=== PATIENT | female | born 1995 | race Caucasian/White ===

== ENCOUNTER 2022-09-03 06:07 | Inpatient (IN) | payer SELFPAY ==
[2022-09-03] VITALS (49 sets, daily range): BP systolic 119–159; BP diastolic 58–95; PULSE 70–140; TEMP 97.8–99.5
[~2022-09-03] VITALS: Ht 154.9 cm; Wt 69.1 kg
--- NOTE | 2022-09-03 06:30 | NUR ---
0630: PT AMBULATORY TO LR5 WITH SPOUSE. CHANGED INTO CLEAN GOWN. VIDEO POPCORN CANDY MAKER USED FOR COMMUNICATION. FHR MONITOR/TOCO APPLIED. PT DENIES ANY VAGINAL BLEEDING, LEAKING OF FLUID, REGULAR CONTRACTIONS, OR DECREASED MOVEMENT. INDUCTION OF LABOR AND POC DISCUSSED, PT VERBALIZES UNDERSTANDING.
[2022-09-03] MEDS ORDERED: PRENATAL TABLET (06:52)
[2022-09-03 08:07] LABS: BASO % 0.3 % (0.0-2.0); EOS # 0.1 K/mm3 (0.0-0.7); EOS % 1.2 % (0.0-4.0); GRAN # 5.7 K/mm3 (1.4-6.5); GRAN % 65.7 % (42.2-75.2); HEMOGLOBIN 11.2 g/dl (12.5-16.0); LYMPH # 2.2 K/mm3 (1.2-3.4); MEAN CELL VOLUME 87 fl (80.0-100.0); MEAN CORPUSCULAR HEMOGLOBIN 30 pg (27-31); MEAN CORPUSCULAR HGB CONC 35 g/dl (33.0-37.0); MEAN PLATELET VOLUME 10.3 fl (7.4-10.4); MONO # 0.6 K/mm3 (0.1-0.6); MONO % 6.5 % (1.7-9.3); PLATELET COUNT 247 K/mm3 (130-400); REDCELL DISTRIBUTION WIDTH-CV 13.3 % (11.5-14.5)
[2022-09-03 08:10] LABS: HEMATOCRIT 32.1 % (37.0-47.0)
--- NOTE | 2022-09-03 12:00 | NUR ---
[id number] PT AMBULATING IN ROOM. FHR MONITOR HAVING DIFFICULTY TRACING DUE TO MATERNAL POSITION.
--- NOTE | 2022-09-03 17:00 | NUR ---
DR HARPER ON UNIT REVIEWING FHR STRIP. ORDERS TO GO UP TO 30 ON PITOCIN.
--- NOTE | 2022-09-03 18:10 | NUR ---
This nurse received report from Sally Jarrett RN. Pt is a prime IOL, AROM at 0930 with clear fluid, epidural at 1310, [place] at 1410, 1640 SVE 6-0, is Colombian speaking, currently on 20 of Pitocin at 1705, and is a late PNC at 23 weeks. This nurse assumes care from Sally Jarrett RN.
--- NOTE | 2022-09-03 18:45 | NUR ---
This nurse at pt bedside for introductions and POC discussion. This nurse utilized unit cash poster Hailey ID #[id number]. This nurse discussed POC, pushing positions, and breathing. Questions, concerns, and needs encouraged. Pt verbalized understanding and agreement of POC with "no" questions, concerns, or needs.
--- NOTE | 2022-09-03 19:00 | NUR ---
FHR and ctx tracing intermittently due to pt positioning. Pt maneuvered into SLHR on BR, WL. This nurse at pt bedside palpating pt abd, with pt consent and explanation, attempting to readjust external monitors x2.
--- NOTE | 2022-09-03 19:15 | NUR ---
FHR and ctx tracing intermittently due to pt positioning. This nurse at pt bedside palpating pt abd, with pt consent and explanation, attempting to readjust external monitors x2. 1845: Pt maneuvered into SLHR, WL. 1850: Pt maneuvered into SLHR, WR. 1900: Pt maneuvered into FCG with PB, WL.
--- NOTE | 2022-09-03 20:00 | NUR ---
This nurse utilized unit early childhood teacher assistant Jake ID #[id number] to translate for pt POC. Vice President Digital Strategist Jake utilized for translation from labor, to pushing, delivering, and . Pushing re-iterated with pt, after Pepper QUEZADA. After pt delivered pt baby, interventions and recovery discussed with pt. Discussion of nursery and care of pt baby ensued. packet education discussed, to include baby registration form and I/O sheet for pt baby. Questions, concerns, and needs encouraged. Pt verbalized understanding of POC with "no" questions, concerns, or needs.
--- NOTE | 2022-09-03 20:00 | NUR ---
SVE with pt consent and explanation, complete.
--- NOTE | 2022-09-03 20:15 | NUR ---
2005: Pepper QUEZADA. 2008: Pt pushes with each ctx. FHR and ctx tracing intermittently due to pt pushing with each ctx. This nurse at pt bedside throughout entire second stage. This nurse palpating pt abd, with pt consent and explanation, attempting to readjust external monitors x2.
--- NOTE | 2022-09-03 20:30 | NUR ---
FHR and ctx tracing intermittently due to pt pushing with each ctx. This nurse at pt bedside throughout entire second stage. This nurse palpating pt abd, with consent and explanation, attempting to readjust external monitors x2.
--- NOTE | 2022-09-03 21:00 | NUR ---
FHR and ctx tracing intermittently due to pt pushing with each ctx. FHR audible throughout room. This nurse at pt bedside throughout entire second stage. This nurse palpating pt abd, with pt consent and explanation, attempting to readjust external monitors x2.
--- NOTE | 2022-09-03 21:15 | NUR ---
FHR and ctx tracing intermittently due to pt pushing with each ctx. FHR audible throughout room. This nurse at pt bedside throughout entire second stage. This nurse palpating pt abd, with consent and explanation, attempting to readjust external monitors x2.
--- NOTE | 2022-09-03 21:30 | NUR ---
FHR and ctx tracing intermittently due to pt pushing with each ctx. FHR audible throughout entire room. This nurse at pt bedside throughout entire second stage. This nurse palpating pt abd, with pt consent and explanation, attempting to readjust external monitors x2.
--- NOTE | 2022-09-03 21:56 | NUR ---
2139: Dr. Chiang at pt bedside. Pt assessed, strip reviewed. 2147: Dr. Chiang discusses POC for use of vacuum assisted delivery. Pros and cons discussed. Pt verbalized understanding and agreement of POC for use of vacuum. 2149: Vacuum applied. Dr. Chiang begins pulling with ctx. Pop off noted at 2150. Vacuum reapplied. Pop off noted at 2153. 2155: , vacuum assisted, of viable baby boy at 2155 with a NC x1. Baby to mothers abd. Cord clamped by Dr. Chiang and cut by FOB. Baby care assumed by nursery nurse Edenilson Ramos RN. Spontaneous delivery of intact placenta at 2157. Pitocin started at 333 mL/hr per protocol. Dr. Chiang beginds repair of second degree repair laceration at 2199. recovery started at 0.
--- NOTE | 2022-09-03 23:41 | NUR ---
This nurse visualized pt pt baby. Pt right breast has what appears to be an additional nipple to pt breast. This nurse educated pt on positions, baby positions for , times, I/O sheet for pt baby, and consent for bottles given to baby per pt request. Pump discussion with pt in the event that pt baby does not favor pt right breast to mitigate any lopsidedness/engorgement issues that may arise. Pt needs more help and encouragement at having pt baby on the breast. Self expression of pt breast, colostrum noted from both breasts. Pt baby does well to latch but would loosen after a couple sucks/swallow.
[2022-09-04] VITALS: BP 136/84; PULSE 85
[2022-09-04 00:30] VITALS: BP 137/81; PULSE 84
[2022-09-04 01:30] VITALS: BP 132/76; PULSE 105
[2022-09-04 02:30] VITALS: BP 105/89; PULSE 108
--- NOTE | 2022-09-04 02:30 | NUR ---
Pt OOB, ambulating to utilize bathroom. Pericare performed, pt changed into gown. Pt ambulated to Room 212, accompanied by significant other pushing pt baby in crib, besides this nurse at 0230. Pt oriented to Room 212, educated on whiteboard, postaprtum packet, and abnormal bleeding. Questions, concerns, and needs encouraged. Pt verbalized understanding of POC with "no" questions, concerns, or needs.
[2022-09-04 06:00] VITALS: BP 129/74; PULSE 81; TEMP 98.1
--- NOTE | 2022-09-04 18:30 | NUR ---
This nurse received report from Anna Tavares RN. Pt is stable, dorian GARCIA, has decided against circumcision for pt baby, is still not clear of BF or bottle feeding plans, still has INT in, and last asked for a bottle for baby at 1700. This nurse assumes care from Anna Tavares RN.
[2022-09-04 19:00] VITALS: BP 132/73; PULSE 86; TEMP 99
--- NOTE | 2022-09-04 19:00 | NUR ---
This nurse at pt bedside for POC discussion and introductions. VS and assessments obtained. Pt educated on BF and bottle concerns, burping baby, as well as what is required for pt baby 24 hour labs. Questions, concerns, and needs encouraged. Pt verbalized understanding and agreement of POC with "no" questions, concerns, or needs.
--- NOTE | 2022-09-04 22:00 | NUR ---
Pt asleep during this nurse hourly rounding. Rise and fall of chest noted with non-laborous breathing noted.
--- NOTE | 2022-09-04 23:41 | NUR ---
Pt significant other approached this nurse with a form and name stating "I am supposed to give this to someone". This nurse clarified what form it was and informed pt significant other that admissions is who they will be directed to for any billing needs. This nurse also expressed that their concerns will be shared and passed along to the day shift personnel so that they are pointed in the right direction. Questions, concerns, and needs encouraged. Pt and pt significant other verbalized understanding and agreement of POC with "no" additional questions, concerns, or needs.
--- NOTE | 2022-09-04 23:44 | NUR ---
Pt and pt significant other informed of pt baby 24 hour labs. Pt nd pt significant other verbalized understanding and agreement of POC for pt baby 24 hour labs.
--- NOTE | 2022-09-04 23:46 | NUR ---
Pt asleep during this nurse hourly rounding. Rise and fall of chest with non-laborous breathing noted.
[2022-09-05 09:00] VITALS: BP 126/81; PULSE 89; TEMP 98.3
[2022-09-05] MEDS ORDERED: MOTRIN 800800 MG/TAB PO (12:01)
== END 2022-09-05 13:05 | disposition home or self-care (01) | DRG 807 ==
LOC: OB 06:07 → LDR 06:07 → OB 16:20
PROVIDERS: ADMIT Obstetrics & Gynecology
PROC: 10D07Z6 Extraction of Products of Conception, Vacuum, Via Natural or Artificial Opening (ICD-10-PCS; principal; 2022-09-03)
PROC: 0KQM0ZZ Repair Perineum Muscle, Open Approach (ICD-10-PCS; 2022-09-03)
PROC: 3E033VJ Introduction of Other Hormone into Peripheral Vein, Percutaneous Approach (ICD-10-PCS; 2022-09-03)
PROC: 10907ZC Drainage of Amniotic Fluid, Therapeutic from Products of Conception, Via Natural or Artificial Opening (ICD-10-PCS; 2022-09-03)
DX: O36.5930 Maternal care for other known or suspected poor fetal growth, third trimester, not applicable or unspecified (principal); Z37.0 Single live birth; Z3A.39 39 weeks gestation of pregnancy; O76 Abnormality in fetal heart rate and rhythm complicating labor and delivery; O69.81X0 Labor and delivery complicated by cord around neck, without compression, not applicable or unspecified; O75.81 Maternal exhaustion complicating labor and delivery; O70.1 Second degree perineal laceration during delivery; Z23 Encounter for immunization
CPT/HCPCS: J2210; J2590; J2795; J7120